=== PATIENT | female | born 1980 | race Caucasian/White ===

== ENCOUNTER 2022-07-27 11:04 | Outpatient (CLI) | payer OTHER, SELFPAY | END 2022-07-27 11:05 | disposition home or self-care (01) | PROVIDERS: PCP Nurse Practitioner Family; Visit Provider Nurse Practitioner Family | DX: Z01.419 Encounter for gynecological examination (general) (routine) without abnormal findings (principal); R53.83 Other fatigue; Z13.6 Encounter for screening for cardiovascular disorders | CPT/HCPCS: 80053; 80061; 84443 ==

== ENCOUNTER 2022-08-01 13:42 | Outpatient (CLI) | payer OTHER, SELFPAY ==
--- NOTE | 2022-08-01 14:00 | CRLHL7_ITS ---
For Patients: As a result of the Century Cures Act, medical imaging exams and procedure reports are released immediately into your electronic medical record. You may view this report before your referring provider. If you have questions, please contact your health care provider. INDICATION: Pelvic pain COMPARISON: none TECHNIQUE: 2D ramos scale and color Doppler images were acquired of the pelvis using a transabdominal and transvaginal approach. FINDINGS: The uterus is absent. The right ovary measures 2.6 x 1.3 x 2.1 cm in size and the left ovary measures 3.4 x 2.3 x 2.9 cm. The ovaries demonstrate normal arterial and venous blood flow on color Doppler analysis. There is a simple left ovarian cyst measuring 1.9 x 1.8 x 2.2 cm. There are no suspicious fluid collections within the cul-de-sac. IMPRESSION: Simple left ovarian cyst measuring 2.2 cm. No adnexal mass or excess pelvic free fluid. Status post hysterectomy. Dictated by Jamie Fischer MD @ 08/02/2022 12:42:13 PM (Electronically Signed)
== END 2022-08-01 13:43 | disposition home or self-care (01) ==
LOC: US 13:43
PROVIDERS: PCP Nurse Practitioner Family; Visit Provider Nurse Practitioner Family
DX: R10.2 Pelvic and perineal pain (principal); N83.202 Unspecified ovarian cyst, left side
CPT/HCPCS: 76830; 76856

== ENCOUNTER 2022-10-10 14:35 | Outpatient (CLI) | payer OTHER, SELFPAY ==
--- NOTE | 2022-10-10 14:40 | CRLHL7_ITS ---
For Patients: As a result of the Cures Act, medical imaging exams and procedure reports are released immediately into your electronic medical record. You may view this report before your referring provider. If you have questions, please contact your health care provider. BILATERAL SCREENING MAMMOGRAM WITH COMPUTER-AIDED DETECTION AND TOMOSYNTHESIS TECHNIQUE: CC and MLO views were obtained. These mammographic images have been obtained using full-field digital technique. These mammographic images were interpreted with the benefit of computer-aided detection. Breast tomosynthesis was used in this interpretation. COMPARISON FILM: 08/12/21, 07/20/20, 03/03/19. FINDINGS: There are scattered areas of fibroglandular density. IMPRESSION: There is no radiographic evidence for malignancy. ASSESSMENT: BI-RADS Category 1: Negative RECOMMENDATION: Routine screening mammogram in 1 year. A lay language report of this examination will be provided to the patient. JAMIE STEVENS M.D. Diagnostic Radiologist [email or web address] Transcribed: 10/11/2022, 2:[address]/Dictated by: Jamie Stevens MD @ 10/11/2022 10:15:00 AM (Electronically Signed)
== END 2022-10-10 14:36 | disposition home or self-care (01) ==
LOC: MAMMO 14:36
PROVIDERS: PCP Nurse Practitioner Family; Visit Provider Nurse Practitioner Family
DX: Z12.31 Encounter for screening mammogram for malignant neoplasm of breast (principal)
CPT/HCPCS: 77063; 77067

== ENCOUNTER 2023-09-04 07:14 | Outpatient (CLI) | payer OTHER, SELFPAY ==
--- NOTE | 2023-09-04 09:02 | W.ANESCHARGE ---
Anesthesia Charges Start Date/Time Anesthesia Start Date: 09/04/23 Anesthesia Start Time: 08:25 Stop Date/Time Anesthesia Stop Date: 09/04/23 Anesthesia Stop Time: 08:59
--- NOTE | 2023-09-04 10:33 | W.ANESCHARGE ---
Anesthesia Charges Start Date/Time Anesthesia Start Date: 09/04/23 Anesthesia Start Time: 08:25 Stop Date/Time Anesthesia Stop Date: 09/04/23 Anesthesia Stop Time: 08:59
== END 2023-09-04 07:15 | disposition home or self-care (01) ==
LOC: OP CLINIC 07:15
PROVIDERS: PCP Nurse Practitioner Family; Visit Provider Surgery
DX: Z12.11 Encounter for screening for malignant neoplasm of colon (principal); K63.5 Polyp of colon; K57.30 Diverticulosis of large intestine without perforation or abscess without bleeding
CPT/HCPCS: 00811; 45385; 88305; J2704

== ENCOUNTER 2023-10-15 08:08 | Outpatient (CLI) | payer OTHER, SELFPAY ==
--- NOTE | 2023-10-15 08:15 | CRLHL7_ITS ---
For Patients: As a result of the Century Cures Act, medical imaging exams and procedure reports are released immediately into your electronic medical record. You may view this report before your referring provider. If you have questions, please contact your health care provider. BILATERAL SCREENING MAMMOGRAM WITH COMPUTER-AIDED DETECTION AND TOMOSYNTHESIS TECHNIQUE: CC and MLO views were obtained. These mammographic images have been obtained using full-field digital technique. These mammographic images were interpreted with the benefit of computer-aided detection. Breast Tomosynthesis was used in this interpretation. COMPARISON FILM: 10/10/22, 08/12/21, 07/20/20. FINDINGS: There are scattered areas of fibroglandular density. IMPRESSION: There is no radiographic evidence for malignancy. ASSESSMENT: BI-RADS Category 1: Negative RECOMMENDATION: Routine screening mammogram in 1 year. A lay language report of this examination will be provided to the patient. Jamie Fischer M.D. Diagnostic Radiologist [email or web address] SP/Dictated by: Jamie Fischer MD @ 10/15/2023 9:41:00 AM (Electronically Signed)
== END 2023-10-15 08:09 | disposition home or self-care (01) ==
LOC: MAMMO 08:09
PROVIDERS: PCP Nurse Practitioner Family; Visit Provider Nurse Practitioner Family
DX: Z12.31 Encounter for screening mammogram for malignant neoplasm of breast (principal)
CPT/HCPCS: 77063; 77067

== ENCOUNTER 2025-01-01 08:16 | Outpatient (CLI) | payer OTHER, SELFPAY | END 2025-01-01 08:17 | disposition home or self-care (01) | LOC: FRMREF 08:16 | PROVIDERS: PCP Nurse Practitioner Family; Visit Provider Nurse Practitioner Family | DX: Z13.6 Encounter for screening for cardiovascular disorders (principal); R21 Rash and other nonspecific skin eruption; E66.9 Obesity, unspecified; Z68.28 Body mass index [BMI] 28.0-28.9, adult; R03.0 Elevated blood-pressure reading, without diagnosis of hypertension | CPT/HCPCS: 80053; 80061; 84443; 87070; 87186 ==